=== PATIENT | female | born 1980 | race Caucasian/White ===

== ENCOUNTER 2017-02-14 11:57 | Emergency (ER) | payer BC ==
[~2017-02-14] VITALS: Ht 175.3 cm; Wt 65.9 kg
[~2017-02-14 11:57] MED LIST: ACETAMINOPHEN500 MG PO; ANTIVERT 25MG25 MG PO; BENADRYL25 M2 PO; CARAFATE 1GM1 G PO; CEPHALEXIN500 M1 PO; DEPO-PROVER150 MG/M1 IM; DEXILANT60 MG PO; IBUPROFEN 200200 MG PO; K-DUR 10 MEQ T10 MEQ PO; MAGNESIUM OXIDE PO; MOTRIN 600600 MG/TAB PO; MULTIPLE VITAMI1 TA5 PO; ONE DAILY1 TA1 PO; PERCOCET 325 MG1 TA2 PO; POTASSIUM PO; PRENATAL VITA1 UDTAB PO; PRILOSEC 20MG20 MG PO; TOPAMAX 25MG25 M1 PO; TRINESSA1 TAB PO; TYLENOL 325MG325 MG PO; VALIUM 2MG T2 MG/TAB PO; VENTOLIN INHAL6.8 GM IH; ZOFRAN 4MG T4 MG/TAB PO; ZOFRAN ODT4 MG PO; [UNRECOGNIZED DRUG - OTHER]
[2017-02-14 12:01] VITALS: BP 144/70; PULSE 88; TEMP 98.3
[2017-02-14] MEDS ORDERED: PROAIR HFA0.09 MG/AC IH (12:42)
[2017-02-14] MEDS ORDERED: PREDNISONE20 MG PO (12:43)
[2017-02-14] MEDS ORDERED: ZITHROMAX 250M250 MG PO (12:43)
[2017-02-14] MEDS ORDERED: PRILOSEC 20MG20 MG PO (12:44)
[2017-02-14] MEDS ORDERED: ALLEGRA 60MG TA60 MG PO (12:44)
[2017-02-14] MEDS ORDERED: VITAMIN C500 MG PO (12:45)
== END 2017-02-14 14:03 | disposition home or self-care (01) ==
LOC: COL.ER 11:57
DX: J40 Bronchitis, not specified as acute or chronic (principal)

== ENCOUNTER 2017-06-26 19:40 | Emergency (ER) | payer BC ==
[~2017-06-26] VITALS: Ht 175.3 cm; Wt 60.5 kg
[~2017-06-26 19:40] MED LIST changes: +ALLEGRA 60MG TA60 MG PO; +PREDNISONE20 MG PO; +PROAIR HFA0.09 MG/AC IH; +VITAMIN C500 MG PO; +ZITHROMAX 250M250 MG PO
[2017-06-26 19:42] VITALS: TEMP 98.6
[2017-06-26] MEDS ORDERED: DEPO-PROVE150 MG/1 M IM (20:20)
[2017-06-26] MEDS ORDERED: NAPROSYN500 MG PO (20:20)
[2017-06-26] MEDS ORDERED: LIORESAL20 MG PO (20:21)
[2017-06-26] MEDS ORDERED: MULTI VITAMINS1 TAB PO (20:21)
[2017-06-26] MEDS ORDERED: ZOLOFT 25MG25 MG PO (20:21)
[2017-06-26] MEDS ORDERED: FLONASEALLERGY NS (20:22)
[2017-06-26 20:26] LABS: PH 7 (5-8); SQUAMOUS EPITHELIAL None Seen /hpf; URINE APPEARANCE Clear; URINE BACTERIA None Seen /hpf; URINE BILIRUBIN Negative (NEGATIVE); URINE BLOOD Negative (NEGATIVE); URINE COLOR Colorless; URINE GLUCOSE Negative (NEGATIVE); URINE KETONE Negative (NEGATIVE); URINE RBC 0-2 /hpf; URINE UROBILINOGEN Negative (NEGATIVE); URINE WBC 0-2 /hpf
[2017-06-26 20:36] LABS: BASO # 0.1 (0.0-0.2); BASO % 0.6 % (0.0-2.0); EOS % 0.4 % (0-4.0); GRAN # 5.2 (1.4-6.5); GRAN % 63.2 % (42.2-75.2); HEMOGLOBIN 12.8 g/dl (12.5-16.0); LYMPH # 2.4 (1.2-3.4); LYMPH % 29.1 % (20.0-51.0); MEAN CELL VOLUME 88 fl (80.0-100.0); MEAN CORPUSCULAR HEMOGLOBIN 30 pg (27.0-31.0); MEAN CORPUSCULAR HGB CONC 35 g/dl (33.0-37.0); MEAN PLATELET VOLUME 10.5 fl (7.4-10.4); MONO # 0.5 (0.1-0.6); MONO % 6.5 % (1.7-9.3); PLATELET COUNT 174 K/mm3 (130-400); RED BLOOD COUNT 4.23 M/mm3 (4.10-5.30); REDCELL DISTRIBUTION WIDTH-CV 11.9 % (11.5-14.5); WHITE BLOOD COUNT 8.2 K/mm3 (4.8-10.8)
[2017-06-26 20:50] LABS: ADJUSTED CALCIUM 9.1 mg/dL (8.4-10.2); ALANINE AMINOTRANSFERASE 21 U/L (9-52); ALBUMIN 4.5 gm/dL (3.5-5.0); ALKALINE PHOSPHATASE 40 U/L (50-136); ANION GAP 12 mmol/L (7-16); BILIRUBIN,TOTAL 0.5 mg/dL (0.0-1.0); BLOOD UREA NITROGEN 11 mg/dL (7-17); C-REACTIVE PROTEIN < 0.5 mg/dL (0.0-0.9); CALCIUM 9.5 mg/dL (8.4-10.2); CARBON DIOXIDE 20 mmol/L (22-30); CHLORIDE 107 mmol/L (98-107); CREATININE, serum 0.67 mg/dL (0.52-1.25); GLUCOSE 94 mg/dL (74-106); LIPASE 121 U/L (23-300); POTASSIUM 3.6 mmol/L (3.4-5.0); SODIUM 139 mmol/L (137-145); TOTAL PROTEIN 6.8 gm/dL (6.4-8.2)
[2017-06-26] MEDS ORDERED: NORCO 325 MG-51 TAB PO (22:40)
[2017-06-26] MEDS ORDERED: ZOFRAN 4MG T4 MG/TAB PO (22:40)
[2017-06-26 22:50] VITALS: BP 118/78; PULSE 78
== END 2017-06-26 22:50 | disposition home or self-care (01) ==
LOC: COL.ER 19:40
PROVIDERS: Emergency Medicine
DX: N23 Unspecified renal colic (principal); K21.9 Gastro-esophageal reflux disease without esophagitis; Z90.49 Acquired absence of other specified parts of digestive tract; Z98.890 Other specified postprocedural states
CPT/HCPCS: J1885; J2405; J7030; Q9967

== ENCOUNTER 2017-12-26 13:50 | Emergency (ER) | payer BC ==
[~2017-12-26] VITALS: Ht 175.3 cm; Wt 63.6 kg
[~2017-12-26 13:50] MED LIST changes: +DEPO-PROVE150 MG/1 M IM; +FLONASEALLERGY NS; +LIORESAL20 MG PO; +MULTI VITAMINS1 TAB PO; +NAPROSYN500 MG PO; +NORCO 325 MG-51 TAB PO; +ZOLOFT 25MG25 MG PO
[2017-12-26 13:53] VITALS: TEMP 98.2
[2017-12-26 15:03] LABS: BASO # 0.1 (0.0-0.2); BASO % 0.9 % (0.0-2.0); EOS # 0.1 (0.0-0.7); EOS % 1.3 % (0-4.0); GRAN # 3.6 (1.4-6.5); GRAN % 66.6 % (42.2-75.2); HEMATOCRIT 40.7 % (37.0-47.0); HEMOGLOBIN 13.4 g/dl (12.5-16.0); LYMPH # 1.1 (1.2-3.4); LYMPH % 20.4 % (20.0-51.0); MEAN CELL VOLUME 89 fl (80.0-100.0); MEAN CORPUSCULAR HEMOGLOBIN 29 pg (27.0-31.0); MEAN CORPUSCULAR HGB CONC 33 g/dl (33.0-37.0); MEAN PLATELET VOLUME 10.8 fl (7.4-10.4); MONO # 0.6 (0.1-0.6); MONO % 10.6 % (1.7-9.3); PLATELET COUNT 157 K/mm3 (130-400); REDCELL DISTRIBUTION WIDTH-CV 11.9 % (11.5-14.5)
[2017-12-26 15:17] LABS: ALANINE AMINOTRANSFERASE 23 U/L (9-52); ALBUMIN 4.3 gm/dL (3.5-5.0); ALKALINE PHOSPHATASE 42 U/L (50-136); ANION GAP 8 mmol/L (7-16); AST,SGOT 15 U/L (15-37); BILIRUBIN,TOTAL 0.3 mg/dL (0.0-1.0); BLOOD UREA NITROGEN 8 mg/dL (7-17); CARBON DIOXIDE 23 mmol/L (22-30); CHLORIDE 107 mmol/L (98-107); CREATININE, serum 0.78 mg/dL (0.52-1.25); GLUCOSE 92 mg/dL (74-106); POTASSIUM 3.6 mmol/L (3.4-5.0); SODIUM 138 mmol/L (137-145); TOTAL PROTEIN 6.6 gm/dL (6.4-8.2)
[2017-12-26 15:22] LABS: C-REACTIVE PROTEIN < 0.5 mg/dL (0.0-0.9)
[2017-12-26 15:46] LABS: COLLECTION METHOD CLEAN CATCH
[2017-12-26] MEDS ORDERED: ZOFRAN ODT4 MG PO (15:48)
[2017-12-26] MEDS ORDERED: PHENERGAN 25 TA25 MG PO (15:48)
[2017-12-26 15:58] LABS: PH 6 (5-8); SQUAMOUS EPITHELIAL 0-2 /hpf; URINE APPEARANCE Clear; URINE BACTERIA None Seen /hpf; URINE BILIRUBIN Negative (NEGATIVE); URINE BLOOD Negative (NEGATIVE); URINE COLOR Colorless; URINE GLUCOSE Negative (NEGATIVE); URINE KETONE Negative (NEGATIVE); URINE LEUKOCYTE ESTERASE Negative (NEGATIVE); URINE NITRATE Negative (NEGATIVE); URINE PROTEIN(semi-quant) Negative (NEGATIVE); URINE RBC 0-2 /hpf; URINE UROBILINOGEN Negative (NEGATIVE)
[2017-12-26 16:49] VITALS: BP 120/63; PULSE 75
== END 2017-12-26 16:49 | disposition home or self-care (01) ==
LOC: COL.ER 13:50
PROVIDERS: Physician Assistant
DX: B34.9 Viral infection, unspecified (principal); J06.9 Acute upper respiratory infection, unspecified
CPT/HCPCS: J2405; J7030

== ENCOUNTER → 2024-01-06 | Outpatient (CLI) | payer OTHER ==
[~2024-01-06] MED LIST changes: +PHENERGAN 25 TA25 MG PO
== END ==
LOC: MC.RAD 09:04
DX: Z12.31 Encounter for screening mammogram for malignant neoplasm of breast (principal)